=== PATIENT | male | born 1995 | race African-American/Black ===

== ENCOUNTER 2021-04-01 16:30 | Inpatient (IN) | payer BC ==
[2021-04-01] MEDS ORDERED: MAG HYDROX/AL HYDROX/SIMETH 30 ML UNIT-DOSE CUP PO PRN (19:08)
[2021-04-01] MEDS ORDERED: METHOCARBAMOL 500 MG TABLET PO PRN (19:08)
[2021-04-01] MEDS ORDERED: ONDANSETRON *ODT* 4 MG TABLET SL PRN (19:08)
[2021-04-01] MEDS ORDERED: ACETAMINOPHEN 325 MG TABLET (FP) PO PRN ×2 (19:08)
[2021-04-01] MEDS ORDERED: IBUPROFEN 400 MG TABLET (FP) PO PRN (19:08)
[2021-04-01] MEDS ORDERED: MENTHOL/PHENOL 1 EACH UD MM PRN (19:08)
[2021-04-01] MEDS ORDERED: BISMUTH SUBSALICYLATE 524 MG/30 ML PO PRN (19:08)
[2021-04-01] MEDS ORDERED: MAGNESIUM CITRATE 300 ML BOTTLE PO PRN (19:08)
[2021-04-01] MEDS ORDERED: MAGNESIUM HYDROX 2400MG/30ML ORAL SUSPENSION 30 ML CUP PO PRN (19:08)
[2021-04-01 19:27] VITALS: BMI 28.5
[2021-04-01] MEDS ORDERED: CALAMINE 8% TOPICAL LOTION 177 ML BOTTLE TP PRN (19:30)
[2021-04-01] MEDS: hydrOXYzine PAMOATE 25 MG CAPSULE (FP) PO SCH (22:53)
[2021-04-01] MEDS: THIAMINE HCL 100 MG TABLET (FP) PO SCH (22:53)
[2021-04-01] MEDS: MELATONIN 5 MG TABLETS PO SCH (22:54)
[2021-04-01] MEDS: BACITRACIN 0.9 GM PACKET TP SCH (22:57)
[2021-04-02] MEDS: hydrOXYzine PAMOATE 25 MG CAPSULE (FP) PO SCH ×5 (07:00→22:24)
[2021-04-02] MEDS: PRENATAL VITAMINS W/ FOLIC ACID TABLET (FP) PO SCH (10:47)
[2021-04-02] MEDS: SELENIUM SULFIDE 2.25% 180 ML SHAMPOO TP SCH (10:48)
[2021-04-02] MEDS: BACITRACIN 0.9 GM PACKET TP SCH (10:48)
[2021-04-02] MEDS: risperiDONE 1 MG TABLET PO SCH (10:49)
[2021-04-02] MEDS: THIAMINE HCL 100 MG TABLET (FP) PO SCH (22:24)
[2021-04-02] MEDS: MELATONIN 5 MG TABLETS PO SCH (22:25)
[2021-04-03] MEDS: BACITRACIN 0.9 GM PACKET TP SCH ×2 (00:28→11:08)
[2021-04-03] MEDS: hydrOXYzine PAMOATE 25 MG CAPSULE (FP) PO SCH ×2 (06:05→11:08)
[2021-04-03 09:49] VITALS: BP 116/62; PULSE 102; TEMP 98
[2021-04-03] MEDS: risperiDONE 1 MG TABLET PO SCH (11:08)
[2021-04-03] MEDS: PRENATAL VITAMINS W/ FOLIC ACID TABLET (FP) PO SCH (11:08)
[2021-04-03] MEDS: SELENIUM SULFIDE 2.25% 180 ML SHAMPOO TP SCH (11:08)
== END 2021-04-03 12:30 | disposition home or self-care (01) | DRG 775 ==
LOC: YASAS 16:30 → UNDOADMIN 19:59 → Y6N 19:59 → UNDODISIN 04-03 12:30
PROVIDERS: ADMIT Allergy & Immunology; ATTEND Allergy & Immunology
PROC: HZ2ZZZZ Detoxification Services for Substance Abuse Treatment (ICD-10-PCS; principal; 2021-04-01)
DX: F10.24 Alcohol dependence with alcohol-induced mood disorder (principal); F10.259 Alcohol dependence with alcohol-induced psychotic disorder, unspecified; F17.210 Nicotine dependence, cigarettes, uncomplicated; F20.81 Schizophreniform disorder; S00.402A Unspecified superficial injury of left ear, initial encounter; X58.XXXA Exposure to other specified factors, initial encounter; Y93.9 Activity, unspecified; Y92.9 Unspecified place or not applicable; Z56.0 Unemployment, unspecified; Z59.02 Unsheltered homelessness
CPT/HCPCS: C9803; J2794; U0003; U0005

== ENCOUNTER 2024-08-20 10:02 | Inpatient (IN) | payer BC ==
[2024-08-20 10:44] VITALS: BMI 29.5
[2024-08-20] MEDS ORDERED: MAGNESIUM HYDROX 2400MG/30ML ORAL SUSPENSION 30 ML CUP PO PRN (11:22)
[2024-08-20] MEDS ORDERED: ONDANSETRON *ODT* 4 MG TABLET SL PRN (11:22)
[2024-08-20] MEDS ORDERED: BISMUTH SUBSALICYLATE 262 MG/15 ML BTL PO PRN (11:22)
[2024-08-20] MEDS ORDERED: IBUPROFEN 400 MG TABLET (FP) PO PRN (11:22)
[2024-08-20] MEDS ORDERED: DICYCLOMINE HCL 10 MG CAPSULE PO PRN (11:22)
[2024-08-20] MEDS ORDERED: MAG HYDROX/AL HYDROX/SIMETH 30 ML UNIT-DOSE CUP PO PRN (11:22)
[2024-08-20] MEDS ORDERED: BENZOCAINE/MENTHOL (CHLORASEPTIC ) LOZENGE MM PRN (11:22)
[2024-08-20] MEDS ORDERED: ACETAMINOPHEN 325 MG TABLET (FP) PO PRN (11:22)
[2024-08-20] MEDS ORDERED: chlordiazePOXIDE HCL 25 MG CAPSULE PO PRN (11:22)
[2024-08-20] MEDS ORDERED: guaiFENesin 600 MG TABLET.ER (FP) PO PRN (11:22)
[2024-08-20] MEDS ORDERED: LOPERAMIDE HCL 2 MG CAPSULE PO PRN (11:22)
[2024-08-20] MEDS ORDERED: hydrOXYzine PAMOATE 25 MG CAPSULE (FP) PO PRN (11:22)
[2024-08-20] MEDS ORDERED: BENZONATATE 200 MG CAPSULE PO PRN (11:22)
[2024-08-20] MEDS ORDERED: NALOXONE (NARCAN) HCL 4 MG/0.1 ML SPRAY NS PRN (11:22)
[2024-08-20] MEDS ORDERED: POLYETHYLENE GLYCOL (HEALTHYLAX) 3350 17 GM PACKET PO PRN (11:22)
[2024-08-20] MEDS: IBUPROFEN 600 MG TABLET (FP) PO PRN (17:52)
[2024-08-20] MEDS: chlordiazePOXIDE HCL 25 MG CAPSULE PO SCH (17:53)
[2024-08-20] MEDS: MELATONIN 5 MG TABLETS PO SCH (22:28)
[2024-08-20] MEDS: THIAMINE 100 MG TABLET PO SCH (22:28)
[2024-08-20] MEDS: levETIRAcetam 500 MG TABLET (FP) PO SCH (22:28)
[2024-08-21] MEDS: PRENATAL VITAMINS W/ FOLIC ACID TABLET (FP) PO SCH (10:17)
[2024-08-21] MEDS: NALTREXONE HCL 50 MG TABLET PO ONE (10:18)
[2024-08-21 11:11] LABS: HEMATOCRIT 38.2 % (40.1-51.0); MCHC 31.4 g/dl (32.3-36.5); MEAN CELL VOLUME 99.2 fl (79.0-92.2); MEAN PLT VOLUME 10.2 fl (9.4-12.4); PLATELET COUNT 317 x10^3/uL (163-337); RDW 12.4 % (11.9-15.3)
[2024-08-21 11:18] LABS: POTASSIUM 3.6 mmol/L (3.5-5.1)
[2024-08-21 11:35] LABS: BLOOD UREA NITROGEN 3.8 mg/dL (7-18); CALCIUM 8.9 mg/dL (8.5-10.1)
[2024-08-21 11:39] LABS: CREATININE 0.7 mg/dL (0.55-1.3)
[2024-08-21 11:40] LABS: TOT PROT 7.2 g/dl (6.4-8.2)
[2024-08-21 11:41] LABS: BILIRUBIN,TOTAL 0.5 mg/dL (0.2-1)
[2024-08-21] MEDS: MUPIROCIN 2% TOPICAL OINTMENT 22 GM TUBE TP SCH (12:55)
[2024-08-21] MEDS: CEPHALEXIN MONOHYDRATE 500 MG CAPSULE (UD) PO SCH (23:06)
[2024-08-22] MEDS: chlordiazePOXIDE HCL 25 MG CAPSULE PO SCH (05:46)
[2024-08-22] MEDS: NALTREXONE HCL 50 MG TABLET PO SCH (10:09)
[2024-08-22] MEDS: METHOCARBAMOL 500 MG TABLET PO PRN (22:01)
[2024-08-23] MEDS ORDERED: chlordiazePOXIDE HCL 10 MG CAPSULE PO PRN
[2024-08-23] MEDS: chlordiazePOXIDE HCL 10 MG CAPSULE PO SCH (05:58)
[2024-08-23 20:51] VITALS: BP 147/96; PULSE 72; RESP 18; TEMP 97
[2024-08-24] MEDS ORDERED: chlordiazePOXIDE HCL 10 MG CAPSULE PO SCH (05:00)
[2024-08-25] MEDS ORDERED: chlordiazePOXIDE HCL 10 MG CAPSULE PO ONE (05:00)
== END 2024-08-23 22:40 | disposition left against medical advice (07) | DRG 770 ==
LOC: YASAS 10:02 → Y3N 12:35
PROVIDERS: ADMIT Allergy & Immunology; ATTEND Allergy & Immunology
PROC: HZ2ZZZZ Detoxification Services for Substance Abuse Treatment (ICD-10-PCS; principal; 2024-08-20)
DX: F10.230 Alcohol dependence with withdrawal, uncomplicated (principal); F17.210 Nicotine dependence, cigarettes, uncomplicated; F20.9 Schizophrenia, unspecified; L03.115 Cellulitis of right lower limb; L03.116 Cellulitis of left lower limb
CPT/HCPCS: 36415; 80053; 80305; 80307; 85027; 86780; 93005; 93010

== ENCOUNTER 2024-11-14 20:10 | Inpatient (IN) | payer OTHER ==
[2024-11-14] MEDS ORDERED: BENZOCAINE/MENTHOL (CHLORASEPTIC ) LOZENGE MM PRN (20:48)
[2024-11-14] MEDS ORDERED: MAGNESIUM HYDROX 2400MG/30ML ORAL SUSPENSION 30 ML CUP PO PRN (20:48)
[2024-11-14] MEDS ORDERED: guaiFENesin 600 MG TABLET.ER (FP) PO PRN (20:48)
[2024-11-14] MEDS ORDERED: NALOXONE (NARCAN) HCL 4 MG/0.1 ML SPRAY NS PRN (20:48)
[2024-11-14] MEDS ORDERED: ACETAMINOPHEN 325 MG TABLET (FP) PO PRN (20:48)
[2024-11-14] MEDS ORDERED: METHOCARBAMOL 500 MG TABLET PO PRN (20:48)
[2024-11-14] MEDS ORDERED: BENZONATATE 200 MG CAPSULE PO PRN (20:48)
[2024-11-14] MEDS ORDERED: NALOXONE HCL 0.4 MG/ML VIAL IVPUSH PRN (20:48)
[2024-11-14] MEDS ORDERED: POLYETHYLENE GLYCOL (HEALTHYLAX) 3350 17 GM PACKET PO PRN (20:48)
[2024-11-14] MEDS ORDERED: NICOTINE POLACRILEX 2 MG GUM BUC PRN (20:48)
[2024-11-14] MEDS ORDERED: NICOTINE POLACRILEX 2 MG LOZENGE BC PRN (20:48)
[2024-11-14] MEDS ORDERED: hydrOXYzine PAMOATE 25 MG CAPSULE (FP) PO PRN (20:48)
[2024-11-14] MEDS ORDERED: MAG HYDROX/AL HYDROX/SIMETH 30 ML UNIT-DOSE CUP PO PRN (20:48)
[2024-11-14] MEDS ORDERED: LOPERAMIDE HCL 2 MG CAPSULE PO PRN (20:48)
[2024-11-14] MEDS: CLOBETASOL PROPIONATE 15 GM CREAM TP SCH (21:53)
[2024-11-14] MEDS: THIAMINE 100 MG TABLET PO SCH (21:53)
[2024-11-14] MEDS: MELATONIN 5 MG TABLETS PO SCH (21:53)
[2024-11-14] MEDS: levETIRAcetam 500 MG TABLET (FP) PO SCH (21:53)
[2024-11-15] MEDS: ZINC SULFATE 220 MG CAPSULE (FP) PO SCH (09:33)
[2024-11-15] MEDS: PRENATAL VITAMINS W/ FOLIC ACID TABLET (FP) PO SCH (09:33)
[2024-11-15] MEDS: ASCORBIC ACID 500 MG TABLET (FP) PO SCH (09:33)
[2024-11-15] MEDS: FOLIC ACID 1 MG TABLET (FP) PO SCH (09:36)
[2024-11-15] MEDS: CHOLECALCIFEROL (VIT D3) 1,000 UNIT (25 MCG) TABLET PO SCH (09:36)
[2024-12-06 06:14] VITALS: RESP 16; TEMP 97.1
[2024-12-08 09:09] VITALS: BP 123/72; PULSE 77
== END 2024-12-08 09:46 | disposition home or self-care (01) | DRG 772 ==
LOC: YASAS 20:10 → Y3NR 20:11 → Y3W 11-17 09:47
PROVIDERS: ADMIT Psychiatry & Neurology Pain Medicine; ATTEND Psychiatry & Neurology Pain Medicine
PROC: HZ42ZZZ Group Counseling for Substance Abuse Treatment, Cognitive-Behavioral (ICD-10-PCS; principal; 2024-11-14)
DX: F10.20 Alcohol dependence, uncomplicated (principal); L03.116 Cellulitis of left lower limb; L03.115 Cellulitis of right lower limb; L40.8 Other psoriasis; F17.210 Nicotine dependence, cigarettes, uncomplicated; F20.9 Schizophrenia, unspecified; F31.9 Bipolar disorder, unspecified

== ENCOUNTER 2025-01-30 09:10 | Inpatient (IN) | payer OTHER ==
[2025-01-30 09:39] VITALS: BMI 29.8
[2025-01-30] MEDS ORDERED: ACETAMINOPHEN 325 MG TABLET (FP) PO PRN (09:39)
[2025-01-30] MEDS ORDERED: NALOXONE (NARCAN) HCL 4 MG/0.1 ML SPRAY NS PRN (09:39)
[2025-01-30] MEDS ORDERED: ONDANSETRON *ODT* 4 MG TABLET SL PRN (09:39)
[2025-01-30] MEDS ORDERED: LOPERAMIDE HCL 2 MG CAPSULE PO PRN (09:39)
[2025-01-30] MEDS ORDERED: POLYETHYLENE GLYCOL (HEALTHYLAX) 3350 17 GM PACKET PO PRN (09:39)
[2025-01-30] MEDS ORDERED: MAG HYDROX/AL HYDROX/SIMETH 30 ML UNIT-DOSE CUP PO PRN (09:39)
[2025-01-30] MEDS ORDERED: BENZOCAINE/MENTHOL (CHLORASEPTIC ) LOZENGE MM PRN (09:39)
[2025-01-30] MEDS ORDERED: hydrOXYzine PAMOATE 25 MG CAPSULE (FP) PO PRN (09:39)
[2025-01-30] MEDS ORDERED: IBUPROFEN 400 MG TABLET (FP) PO PRN (09:39)
[2025-01-30] MEDS ORDERED: MAGNESIUM HYDROX 2400MG/30ML ORAL SUSPENSION 30 ML CUP PO PRN (09:39)
[2025-01-30] MEDS ORDERED: METHOCARBAMOL 500 MG TABLET PO PRN (09:39)
[2025-01-30] MEDS ORDERED: DICYCLOMINE HCL 10 MG CAPSULE PO PRN (09:39)
[2025-01-30] MEDS ORDERED: NICOTINE POLACRILEX 2 MG GUM BUC PRN (09:39)
[2025-01-30] MEDS ORDERED: IBUPROFEN 600 MG TABLET (FP) PO PRN (09:39)
[2025-01-30] MEDS ORDERED: BISMUTH SUBSALICYLATE 524 MG/30 ML PO PRN (09:39)
[2025-01-30] MEDS ORDERED: BENZONATATE 200 MG CAPSULE PO PRN (09:39)
[2025-01-30] MEDS ORDERED: guaiFENesin 600 MG TABLET.ER (FP) PO PRN (09:39)
[2025-01-30] MEDS ORDERED: levETIRAcetam 500 MG TABLET (FP) PO ONE (09:52)
[2025-01-30] MEDS ORDERED: levETIRAcetam 500 MG TABLET (FP) PO SCH (10:00)
[2025-01-30] MEDS: levETIRAcetam 500 MG TABLET (FP) PO SCH (10:27)
[2025-01-30] MEDS: PRENATAL VITAMINS W/ FOLIC ACID TABLET (FP) PO SCH (10:28)
[2025-01-30] MEDS ORDERED: PRENATAL VITAMINS W/ FOLIC ACID TABLET (FP) PO ONE (10:32)
[2025-01-30] MEDS: NALTREXONE HCL 50 MG TABLET PO ONE ×2 (11:45→12:05)
[2025-01-30] MEDS: CLOBETASOL PROPIONATE 15 GM CREAM TP SCH (12:25)
[2025-01-30] MEDS ORDERED: CLOBETASOL PROPIONATE 15 GM CREAM TP SCH (22:00)
[2025-01-30] MEDS: THIAMINE 100 MG TABLET PO SCH (22:14)
[2025-01-30] MEDS: MELATONIN 5 MG TABLETS PO SCH (22:14)
[2025-01-31] MEDS: ZINC SULFATE 220 MG CAPSULE (FP) PO SCH ×2 (08:23→10:34)
[2025-01-31] MEDS ORDERED: VITAMIN D3 2000 UNIT PO SCH (10:00)
[2025-01-31] MEDS: ASCORBIC ACID 500 MG TABLET (FP) PO SCH (10:13)
[2025-01-31] MEDS: CHOLECALCIFEROL (VIT D3) 1,000 UNIT (25 MCG) TABLET PO SCH (10:14)
[2025-01-31 12:04] LABS: MCHC 32.3 g/dl (32.3-36.5); MEAN CELL VOLUME 92.9 fl (79.0-92.2); MEAN PLT VOLUME 11.2 fl (9.4-12.4); RDW 15.6 % (12.0-15.6)
[2025-01-31 13:54] LABS: GLUCOSE,RANDOM 85.0 mg/dL (74-106); TOT PROT 8.0 g/dl (6.4-8.2)
[2025-01-31 13:55] LABS: CO2 24.0 mmol/L (21-32)
[2025-01-31 13:57] LABS: ALK PHOS 188.0 U/L (40-150)
[2025-01-31 14:00] LABS: CREATININE 0.6 mg/dL (0.55-1.3); SGOT/AST 1120.0 U/L (5-34); SGPT/ALT 463.0 U/L (0-55)
[2025-02-02 11:29] VITALS: BP 138/90; PULSE 60; RESP 14; TEMP 97.7
== END 2025-02-02 11:11 | disposition home or self-care (01) | DRG 775 ==
LOC: YASAS 09:10 → Y3N 10:09
PROVIDERS: ADMIT Allergy & Immunology; ATTEND Student in an Organized Health Care Education/Training Program
PROC: HZ2ZZZZ Detoxification Services for Substance Abuse Treatment (ICD-10-PCS; principal; 2025-01-30)
DX: F10.230 Alcohol dependence with withdrawal, uncomplicated (principal); F17.210 Nicotine dependence, cigarettes, uncomplicated; F31.9 Bipolar disorder, unspecified; F20.9 Schizophrenia, unspecified; F19.959 Other psychoactive substance use, unspecified with psychoactive substance-induced psychotic disorder, unspecified; F10.24 Alcohol dependence with alcohol-induced mood disorder; I83.018 Varicose veins of right lower extremity with ulcer other part of lower leg; I83.028 Varicose veins of left lower extremity with ulcer other part of lower leg; R74.8 Abnormal levels of other serum enzymes; R74.01 Elevation of levels of liver transaminase levels
CPT/HCPCS: 36415; 80053; 80305; 80307; 82140; 85027; 86780

== ENCOUNTER 2025-02-01 14:49 | Emergency (ER) | payer OTHER ==
[2025-02-01 15:01] VITALS: RESP 18; TEMP 98.2; BMI 31.6
[2025-02-01 17:06] LABS: ABSOLUTE IMMATURE GRANULOCYTES 0.00 x10^3/uL (0.0-0.031); BASOPHILS # 0.03 x10^3/uL (0.01-0.08); EOSINOPHIL % 7.2 % (0.8-7.0); EOSINOPHILS # 0.25 x10^3/uL (0.04-0.54); MCHC 32.3 g/dl (32.3-36.5); MEAN CELL VOLUME 93.4 fl (79.0-92.2); MEAN PLT VOLUME 11.5 fl (9.4-12.4); MONOCYTE # 0.45 x10^3/uL (0.30-0.82); MONOCYTE % 13.0 % (5.3-12.2); RDW 15.4 % (12.0-15.6)
[2025-02-01 17:11] LABS: INR 1.17 (0.83-1.09); PROTHROMBIN TIME (PATIENT) 12.7 SEC (9.7-13.0)
[2025-02-01 17:14] LABS: ACTIVATED PTT 33.9 SECONDS (25.2-36.5)
[2025-02-01 17:59] LABS: GLUCOSE,RANDOM 82.0 mg/dL (74-106); TOT PROT 7.8 g/dl (6.4-8.2)
[2025-02-01 18:00] LABS: CO2 27.0 mmol/L (21-32)
[2025-02-01 18:02] LABS: ALK PHOS 147.0 U/L (40-150)
[2025-02-01 18:04] LABS: CREATININE 0.84 mg/dL (0.55-1.3); SGOT/AST 735.0 U/L (5-34); SGPT/ALT 445.0 U/L (0-55)
[2025-02-01 18:22] LABS: HIV INTERPRETATION NEGATIVE (NEGATIVE)
[2025-02-01 18:23] LABS: HCV DIAGNOSTIC IN-HOUSE W/RFLX NON-REACTIVE (NONREACTIVE)
[2025-02-01 18:33] VITALS: BP 126/76; PULSE 78
== END 2025-02-01 18:41 ==
LOC: JER 14:49
DX: R74.8 Abnormal levels of other serum enzymes (principal); F10.10 Alcohol abuse, uncomplicated; Y90.9 Presence of alcohol in blood, level not specified
CPT/HCPCS: 36415; 76705-TC; 80053; 80076; 80307; 82550; 85025; 85610; 85730; 86803; 87389; 99284-25